=== PATIENT | female | born 1945 | race Caucasian/White ===

== ENCOUNTER 2023-05-14 11:33 | Observation (INO) | payer MEDICARE, OTHER ==
[~2023-05-14] VITALS: Ht 160 cm; Wt 58.7 kg
[~2023-05-14 11:33] MED LIST: HYDMOR2 PO; PROM25 PO; RXHYDMOR2 PO; TAMS.4ER PO
[2023-05-14] MEDS ORDERED: Prinivil10 MG PO (11:59)
[2023-05-14 12:39] LABS: BASOPHILS ABSOLUTE AUTO 0.03 K/mm3 (0.00-0.23); BASOPHILS PERCENT AUTO 0 % (0-2); EOSINOPHILS ABSOLUTE AUTO 0.13 K/mm3 (0.00-0.68); EOSINOPHILS PERCENT AUTO 2 % (0-6); Hemoglobin 12.8 g/dL (11.5-16.0); IMMATURE GRAN PERCENT AUTO 0 % (0-1); LYMPHOCYTES ABSOLUTE AUTO 1.09 K/mm3 (0.84-5.20); LYMPHOCYTES PERCENT AUTO 16 % (21-46); MONOCYTES PERCENT AUTO 9 % (4-13); Mean Corpuscular HGB 30.2 pg (26.0-34.0); Mean Corpuscular HGB Conc 32.8 g/dL (31.5-36.5); Mean Corpuscular Volume 92 fL (80-100); Mean Platelet Volume 10.6 fL (9.1-12.4); NEUTROPHILS ABSOLUTE AUTO 5.01 K/mm3 (1.96-9.15); NEUTROPHILS PERCENT AUTO 73 % (41-73); Platelet Count 218 K/mm3 (150-400); RDW Coefficient Variation 12.2 % (11.7-14.2); RDW Standard Deviation 41.1 fL (35.1-46.3); Red Blood Cell Count 4.24 M/mm3 (3.80-5.20); White Blood Cell Count 6.86 K/mm3 (4.00-11.30)
[2023-05-14 13:06] LABS: Albumin, Blood 3.2 g/dL (3.4-5.0); Albumin/Globulin Ratio 0.9 (0.8-1.8); Bilirubin, Total 0.3 mg/dL (0.1-1.0); Calcium, Blood 8.6 mg/dL (8.5-10.1); Creatinine, Blood 0.78 mg/dL (0.40-1.00); Globulin, Blood 3.5 g/dL (2.2-4.0); Potassium, Blood 3.9 mmol/L (3.5-5.5); Total Protein, Blood 6.7 g/dL (6.4-8.2)
[2023-05-14] MEDS ORDERED: Aspir 8181 MG PO (16:50)
[2023-05-14 16:56] VITALS: BP 156/79
--- NOTE | 2023-05-14 18:42 | NUR ---
SHIFT SUMMARY/ADMISSION NOTE PT ARRIVED TO MEDICAL FLOOR FROM ED AT APPROX 1645. ADMISSION COMPLETE. PT IS AxOx4. PLEASANT AND COOPERATIVE WITH CARE. SBA FOR AMBULATION. PT DENIES PAIN UPON ARRIVAL. VITALS OBTAINED. PT IS CURRENTLY RESTING IN BED WITH CALL LIGHT IN REACH. PT DENIES ANY NEEDS AT THIS TIME. CURRENT PLAN IS FOR MONITORING OVERNIGHT, ECHO TOMORROW AND Q4 NEURO CHECKS. PT WAS ALSO EDUCATED ON FIRE SAFETY AND RISK AND VERBALIZED UNDERSTANDING.
[2023-05-14 20:06] VITALS: BP 154/88
--- NOTE | 2023-05-14 22:54 | NUR ---
RN NOTE MS DUMONT WAS EDUCATED RE IGNITION SOURCES AND RISK OF INJURY WHEN OXYGEN IN USE. SHE DENIED SMOKING AND VERBALISED UNDERSTANDING. RISK REASSESSMENT ON Q1-2 HRLY ROUNDS. 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 NO NEURO DEFICITS NOTED AND PT SAID SHE FEELS AT BASELINE ON ASSESSMENT. SHE VERBALISED UNDERSTANDING THAT SHE WILL BE WOKEN FOR Q4HRLY NEURO CHECKS THROUGH THE NIGHT. SHE DENIED ANY PAIN/RUBIO. NO CALLS FROM SOCIAL WORK ASSISTANT. BED LOW, CALL LIGHT IN REACH.
--- NOTE | 2023-05-15 04:29 | NUR ---
SHIFT SUMMARY MS DUMONT HAD NO CHANGES IN NEURO EVALS OVERNIGHT. SHE DIDN'T SLEEP VERY WELL AND C/O SOME BACKACHE THAT WAS HELPED BY REPOSITIONING AND HEATING PAD. DENIES HEADACHE. NO CALLS FROM SELVAGE MACHINE OPERATOR OVERNIGHT. BED LOW, CALL LIGHT IN REACH.
[2023-05-15 04:30] VITALS: BP 147/63
[2023-05-15 05:14] LABS: BASOPHILS ABSOLUTE AUTO 0.03 K/mm3 (0.00-0.23); BASOPHILS PERCENT AUTO 1 % (0-2); EOSINOPHILS ABSOLUTE AUTO 0.19 K/mm3 (0.00-0.68); EOSINOPHILS PERCENT AUTO 3 % (0-6); Hematocrit 40.6 % (33.0-51.0); Hemoglobin 13.1 g/dL (11.5-16.0); IMMATURE GRAN ABSOLUTE AUTO 0.01 K/mm3 (0.00-0.10); IMMATURE GRAN PERCENT AUTO 0 % (0-1); LYMPHOCYTES ABSOLUTE AUTO 1.87 K/mm3 (0.84-5.20); LYMPHOCYTES PERCENT AUTO 30 % (21-46); MONOCYTES ABSOLUTE AUTO 0.79 K/mm3 (0.16-1.47); MONOCYTES PERCENT AUTO 13 % (4-13); Mean Corpuscular HGB 29.6 pg (26.0-34.0); Mean Corpuscular HGB Conc 32.3 g/dL (31.5-36.5); Mean Corpuscular Volume 92 fL (80-100); Mean Platelet Volume 10.9 fL (9.1-12.4); NEUTROPHILS ABSOLUTE AUTO 3.33 K/mm3 (1.96-9.15); NEUTROPHILS PERCENT AUTO 53 % (41-73); Platelet Count 223 K/mm3 (150-400); RDW Coefficient Variation 12.1 % (11.7-14.2); RDW Standard Deviation 41.1 fL (35.1-46.3); Red Blood Cell Count 4.43 M/mm3 (3.80-5.20); White Blood Cell Count 6.22 K/mm3 (4.00-11.30)
[2023-05-15 06:01] LABS: Anion Gap 4 mmol/L (6-16); Blood Urea Nitrogen 17 mg/dL (8-24); Bun/Creatinine Ratio 21.9 (12.0-20.0); CO2, Blood 27 mmol/L (21-32); Calcium, Blood 8.6 mg/dL (8.5-10.1); Chloride, Blood 109 mmol/L (98-108); Cholesterol 200 mg/dL (50-200); Creatinine, Blood 0.78 mg/dL (0.40-1.00); Glomerular Filtration Rate 77 (60-); Glucose, Blood 97 mg/dL (70-99); HDL Cholesterol 67 mg/dL (>39); LDL/HDL RATIO 1.8; Low Density Lipoprotein Chol 119 mg/dL (0-110); Potassium, Blood 4.1 mmol/L (3.5-5.5); Sodium, Blood 140 mmol/L (136-145); Triglycerides 71 mg/dL (30-160); Very Low Density Lipoprot Chol 14 mg/dL (6-32)
[2023-05-15 07:41] VITALS: BP 157/90
[2023-05-15] MEDS ORDERED: ATOR40TA PO (11:26)
[2023-05-15] MEDS ORDERED: LISI20 PO (11:26)
[2023-05-15 11:33] VITALS: BP 124/79
[2023-05-15 15:41] VITALS: BP 122/98
--- NOTE | 2023-05-15 17:17 | NUR ---
Echo done this afternoon, results pending. MD called Side Seam Tender regarding results, discussed with patient. Patient discharged this evening, provided education on discharge medications. Patient left medical floor at 1700.
== END 2023-05-15 17:11 | disposition home or self-care (01) ==
LOC: ER 11:33 → MEDS 11:34 → ENPENDDIS 05-15 10:55 → MEDS 05-15 17:11
PROVIDERS: Emergency Medicine; ADMIT Internal Medicine
DX: G45.9 Transient cerebral ischemic attack, unspecified (principal); I10 Essential (primary) hypertension; E78.5 Hyperlipidemia, unspecified; Z79.82 Long term (current) use of aspirin
CPT/HCPCS: 36415; 70450; 70496; 70498; 71045; 80048; 80053; 80061; 85025; 85730; 93005; 93010; 93306; 96372; 97112; 97161; 97165; 99285-25; A9270; G0378; J1650; Q9967